=== PATIENT | male | born 1980 | race Hispanic/Latino ===

== ENCOUNTER 2018-10-21 19:17 | Emergency (ER) | payer OTHER ==
[~2018-10-21] VITALS: Ht 190.5 cm; Wt 158.8 kg
[2018-10-21] MEDS ORDERED: VANCOMYCIN 1GM/NS 250 ML 250 ML IV STA (20:50)
[2018-10-21] MEDS ORDERED: MORPHINE SULFATE INJ 4 MG/ML INJ 1ML IV PRN (21:00)
[2018-10-21 21:27] LABS: BASOPHILS # (AUTO) 0.1 (0.0-0.1); BASOPHILS % 0.5 % (0.0-1.0); EOSINOPHILS # (AUTO) 0.9 (0.0-0.4); EOSINOPHILS % 9.1 % (0.0-6.0); HEMATOCRIT 48.1 % (38.2-49.6); HEMOGLOBIN 16.7 g/dL (14.0-18.0); LYMPHOCYTES # (AUTO) 2.6 (1.0-3.2); LYMPHOCYTES % 26.5 % (18.0-39.1); MEAN CORPUSCULAR HEMOGLOBIN 31.6 pg (28-32); MEAN CORPUSCULAR HGB CONC 34.7 g/dL (31-35); MEAN CORPUSCULAR VOLUME 91.1 fL (81-99); MONOCYTES # (AUTO) 0.9 (0.2-0.8); NEUTROPHILS # (AUTO) 5.3 (2.1-6.9); NEUTROPHILS % 54.6 % (38.7-80.0); PLATELET COUNT 213 x10e3/uL (140-360); RED BLOOD COUNT 5.28 x10e6/uL (4.3-5.7)
[2018-10-21 21:45] LABS: ANION GAP 15.7 mmol/L (8-16); BLOOD UREA NITROGEN 10 mg/dL (7-26); BUN/CREATININE RATIO 10 (6-25); CARBON DIOXIDE 22 mmol/L (22-29); CHLORIDE 107 mmol/L (98-107); CREATININE, SERUM 0.99 mg/dL (0.72-1.25); EST GLOMERULAR FILTRATION RATE > 60 ML/MIN (60-); GLUCOSE 105 mg/dL (74-118); POTASSIUM 3.7 mmol/L (3.5-5.1); SODIUM 141 mmol/L (136-145)
[2018-10-21 23:16] VITALS: BP 157/96
== END 2018-10-21 23:29 | disposition home or self-care (01) ==
LOC: ER 19:17
DX: L03.116 Cellulitis of left lower limb (principal); L02.416 Cutaneous abscess of left lower limb; I10 Essential (primary) hypertension
CPT/HCPCS: 36415; 80048; 85025; 99284; J2270; J3370

== ENCOUNTER 2018-12-09 18:06 | Emergency (ER) | payer OTHER ==
[~2018-12-09] VITALS: Ht 190.5 cm; Wt 158.8 kg
--- NOTE | 2018-12-09 19:22 | NUR ---
HS NOTIFIED OF NEED FOR VENOUS DOPPLER
--- NOTE | 2018-12-09 19:30 | NUR ---
ER MD TO TRIAGE FOR INITIAL EVAL
[2018-12-09 19:31] LABS: BASOPHILS % 0.4 % (0.0-1.0); EOSINOPHILS # (AUTO) 0.9 (0.0-0.4); EOSINOPHILS % 11.9 % (0.0-6.0); HEMATOCRIT 45.6 % (38.2-49.6); HEMOGLOBIN 15.6 g/dL (14.0-18.0); LYMPHOCYTES # (AUTO) 1.9 (1.0-3.2); LYMPHOCYTES % 25.9 % (18.0-39.1); MEAN CORPUSCULAR HEMOGLOBIN 31.2 pg (28-32); MEAN CORPUSCULAR HGB CONC 34.2 g/dL (31-35); MEAN CORPUSCULAR VOLUME 91.2 fL (81-99); MONOCYTES # (AUTO) 0.5 (0.2-0.8); NEUTROPHILS % 54.4 % (38.7-80.0); PLATELET COUNT 188 x10e3/uL (140-360)
[2018-12-09 19:49] LABS: ALANINE AMINOTRANSFERASE 14 IU/L (0-55); ALBUMIN 3.7 g/dL (3.5-5.0); ALBUMIN/GLOBULIN RATIO 0.8 (0.8-2.0); ALKALINE PHOSPHATASE 80 IU/L (40-150); ANION GAP 14.1 mmol/L (8-16); BLOOD UREA NITROGEN 17 mg/dL (7-26); BUN/CREATININE RATIO 13 (6-25); CALCIUM 9.5 mg/dL (8.4-10.2); CARBON DIOXIDE 26 mmol/L (22-29); CHLORIDE 103 mmol/L (98-107); CREATINE KINASE 396 IU/L (30-200); CREATININE, SERUM 1.31 mg/dL (0.72-1.25); EST GLOMERULAR FILTRATION RATE > 60 ML/MIN (60-); GLUCOSE 118 mg/dL (74-118); POTASSIUM 4.1 mmol/L (3.5-5.1); SODIUM 139 mmol/L (136-145)
[2018-12-09] MEDS ORDERED: CLINDAMYCIN PHOS 900MG/ 50ML 50 ML IV ONE (20:08)
[2018-12-09] MEDS ORDERED: CLINDAMYCIN HC300 MG PO (21:15)
[2018-12-09] MEDS ORDERED: ACIDOPHILUS1 EAC4 PO (21:15)
== END 2018-12-09 22:00 | disposition home or self-care (01) ==
LOC: ER 18:06
DX: L03.116 Cellulitis of left lower limb (principal); I87.8 Other specified disorders of veins; I10 Essential (primary) hypertension; F17.210 Nicotine dependence, cigarettes, uncomplicated
CPT/HCPCS: 36415; 80053; 82550; 82553; 83605; 83880; 84484; 85025; 87040; 93970; 99283

== ENCOUNTER 2020-10-13 18:12 | Emergency (ER) | payer OTHER ==
[~2020-10-13] VITALS: Ht 190.5 cm; Wt 158.8 kg
[~2020-10-13 18:12] MED LIST: ACIDOPHILUS1 EAC4 PO; CLINDAMYCIN HC300 MG PO
[2020-10-13] MEDS ORDERED: ALBUTEROL/IPRATROPIUM 3 ML NEB NEB ONE (18:30)
[2020-10-13] MEDS ORDERED: METHYLPREDNISOLONE SOD SUCC 125 MG/2ML VIAL IV ONE (18:30)
[2020-10-13 18:55] LABS: BASOPHILS # (AUTO) 0.1 (0.0-0.1); BASOPHILS % 0.8 % (0.0-1.0); EOSINOPHILS # (AUTO) 0.3 (0.0-0.4); EOSINOPHILS % 2.7 % (0.0-6.0); HEMATOCRIT 41.4 % (38.2-49.6); HEMOGLOBIN 13.9 g/dL (14.0-18.0); LYMPHOCYTES # (AUTO) 2.3 (1.0-3.2); LYMPHOCYTES % 21.9 % (18.0-39.1); MEAN CORPUSCULAR HEMOGLOBIN 30.5 pg (28-32); MEAN CORPUSCULAR HGB CONC 33.6 g/dL (31-35); MEAN CORPUSCULAR VOLUME 90.8 fL (81-99); MONOCYTES # (AUTO) 0.9 (0.2-0.8); MONOCYTES % 8.9 % (4.4-11.3); NEUTROPHILS # (AUTO) 6.9 (2.1-6.9); NEUTROPHILS % 65.5 % (38.7-80.0); PLATELET COUNT 269 x10e3/uL (140-360); RED BLOOD COUNT 4.56 x10e6/uL (4.3-5.7); RED CELL DISTRIBUTION WIDTH 13.7 % (11.7-14.4)
[2020-10-13 19:12] LABS: ALBUMIN 3.5 g/dL (3.5-5.0); ALBUMIN/GLOBULIN RATIO 0.9 (0.8-2.0); CALCIUM 8.6 mg/dL (8.4-10.2); CREATININE, SERUM 1.3 mg/dL (0.72-1.25)
[2020-10-13 19:18] LABS: CREATINE KINASE MB 14.2 ng/mL (0-5.0)
[2020-10-13] MEDS ORDERED: FUROSEMIDE INJ 10 MG/ML 4 ML VIAL IV ONE (20:15)
[2020-10-13] MEDS ORDERED: ASPIRIN 81 MG CHEW TAB PO ONE (21:15)
[2020-10-13] MEDS ORDERED: IOPAMIDOL 370 MG/ML 200 ML INFUS..BTL INJ ONE (21:28)
[2020-10-13] MEDS ORDERED: SODIUM CHLORIDE 0.9% 50ML 50 ML ONE (21:28)
[2020-10-13 21:47] LABS: CREATINE KINASE MB 15.5 ng/mL (0-5.0)
[2020-10-13 22:42] VITALS: BP 144/117
== END 2020-10-13 22:45 | disposition home or self-care (01) ==
LOC: ER 18:40
DX: R06.02 Shortness of breath (principal); R05 Cough; J18.9 Pneumonia, unspecified organism; R94.31 Abnormal electrocardiogram [ECG] [EKG]; Z20.822 Contact with and (suspected) exposure to COVID-19
CPT/HCPCS: 36415; 71045; 71260; 80053; 82550; 82553; 83880; 84484; 85025; 93005; 94640; 99284; J1940; J2930; Q9967; U0002

== ENCOUNTER 2020-10-15 04:34 | Inpatient (IN) | payer OTHER ==
[~2020-10-15] VITALS: Ht 167.6 cm; Wt 158.8 kg
[2020-10-15 04:58] LABS: BASOPHILS # (AUTO) 0.1 (0.0-0.1); BASOPHILS % 0.4 % (0.0-1.0); EOSINOPHILS % 0.2 % (0.0-6.0); HEMATOCRIT 41.9 % (38.2-49.6); HEMOGLOBIN 13.6 g/dL (14.0-18.0); LYMPHOCYTES % 14.5 % (18.0-39.1); MEAN CORPUSCULAR HGB CONC 32.5 g/dL (31-35); MEAN CORPUSCULAR VOLUME 92.5 fL (81-99); MONOCYTES # (AUTO) 1.2 (0.2-0.8); NEUTROPHILS # (AUTO) 10.4 (2.1-6.9); NEUTROPHILS % 75.5 % (38.7-80.0); PLATELET COUNT 259 x10e3/uL (140-360); RED BLOOD COUNT 4.53 x10e6/uL (4.3-5.7)
[2020-10-15 05:25] LABS: ALBUMIN 3.6 g/dL (3.5-5.0); ALBUMIN/GLOBULIN RATIO 0.9 (0.8-2.0); ANION GAP 15.8 mmol/L (8-16); CALCIUM 8.5 mg/dL (8.4-10.2); CREATININE, SERUM 1.19 mg/dL (0.72-1.25); POTASSIUM 3.8 mmol/L (3.5-5.1)
[2020-10-15 05:31] LABS: B-TYPE NATRIURETIC PEPTIDE2 276.3 pg/mL (0-100)
[2020-10-15 05:32] LABS: CREATINE KINASE MB 6.2 ng/mL (0-5.0)
[2020-10-15] MEDS ORDERED: FUROSEMIDE INJ 10 MG/ML 4 ML VIAL IV ONE (05:45)
[2020-10-15 07:44] LABS: AMPHETAMINES SCREEN,URINE NEGATIVE (NEGATIVE); BENZODIAZEPINES SCREEN,URINE NEGATIVE (NEGATIVE); CLARITY,URINE CLEAR (CLEAR); COLOR,URINE YELLOW (YELLOW); KETONES,URINE TRACE (NEGATIVE); LEUKOCYTE ESTERASE ,URINE NEGATIVE (NEGATIVE); NITRITE,URINE NEGATIVE (NEGATIVE); PHENCYCLIDINE SCREEN,URINE NEGATIVE (NEGATIVE); PROTEIN,URINE DIPSTICK 2+ (NEGATIVE); URINE UROBILINOGEN 1 mg/dL (0.2 - 1)
[2020-10-15 08:11] LABS: BACTERIA,URINE MODERATE /HPF; RBC,URINE 0-5 /HPF (0-5); WBC,URINE (MAN) 0-5 /HPF (0-5)
[2020-10-15 08:12] LABS: EPITHELIAL CELLS,URINE RARE /LPF
[2020-10-15 09:36] VITALS: BP 147/101
[2020-10-15 10:44] VITALS: BP 147/98
[2020-10-15] MEDS ORDERED: LOSARTAN POTASSIUM 25 MG TAB PO SCH (11:30)
[2020-10-15] MEDS: CEFTRIAXONE 1 GM in SODIUM CHLORIDE 0.9% 50ML 50 ML IV SCH (11:45)
[2020-10-15] MEDS: LOSARTAN POTASSIUM 25 MG TAB PO SCH (12:00)
[2020-10-15 12:49] VITALS: BP 153/112
[2020-10-15] MEDS: ALBUTEROL/IPRATROPIUM 3 ML NEB NEB SCH ×2 (13:26→19:30)
[2020-10-15 14:01] VITALS: BP 148/101
[2020-10-15 16:04] VITALS: BP 141/75
[2020-10-15] MEDS: FUROSEMIDE INJ 10 MG/ML 2 ML VIAL IV SCH (16:32)
[2020-10-15] MEDS: CARVEDILOL 3.125 MG TAB PO SCH (16:32)
[2020-10-15] MEDS: FAMOTIDINE 20 MG TAB PO SCH (18:44)
[2020-10-15] MEDS ORDERED: MAGNESIUM/ALUMINUM/SIMETHICONE 30 ML UDC PO PRN (18:45)
[2020-10-15 20:49] VITALS: BP 137/100
[2020-10-15] MEDS ORDERED: DONNATAL/LIDOCAINE/MAALOX 30 ML SUSP PO ONE (21:00)
[2020-10-15] MEDS ORDERED: BELLADONNA ALK/PHENOBARBITAL 5 ML UDC PO SCH (21:00)
[2020-10-15] MEDS ORDERED: MAGNESIUM/ALUMINUM/SIMETHICONE 30 ML UDC PO ONE (21:15)
[2020-10-15] MEDS ORDERED: LIDOCAINE VISC 2% SOLN 15 ML UDC PO SCH (21:15)
[2020-10-16] VITALS (8 sets, daily range): BP systolic 142–155; BP diastolic 75–118
[2020-10-16] MEDS: ALBUTEROL/IPRATROPIUM 3 ML NEB NEB SCH ×4 (00:15→21:15)
[2020-10-16] MEDS ORDERED: HYDRALAZINE HCL 20 MG/ML VIAL IV PRN (02:00)
[2020-10-16] MEDS: FAMOTIDINE 20 MG TAB PO SCH ×2 (07:30→15:56)
[2020-10-16 07:46] LABS: BASOPHILS # (AUTO) 0.1 (0.0-0.1); BASOPHILS % 0.8 % (0.0-1.0); EOSINOPHILS # (AUTO) 0.1 (0.0-0.4); EOSINOPHILS % 0.4 % (0.0-6.0); HEMATOCRIT 43.1 % (38.2-49.6); HEMOGLOBIN 13.8 g/dL (14.0-18.0); LYMPHOCYTES # (AUTO) 2.3 (1.0-3.2); LYMPHOCYTES % 19.9 % (18.0-39.1); MEAN CORPUSCULAR HEMOGLOBIN 29.8 pg (28-32); MEAN CORPUSCULAR VOLUME 93.1 fL (81-99); MONOCYTES # (AUTO) 1.3 (0.2-0.8); MONOCYTES % 11.3 % (4.4-11.3); NEUTROPHILS # (AUTO) 7.7 (2.1-6.9); NEUTROPHILS % 66.8 % (38.7-80.0); PLATELET COUNT 268 x10e3/uL (140-360); RED BLOOD COUNT 4.63 x10e6/uL (4.3-5.7); RED CELL DISTRIBUTION WIDTH 14.1 % (11.7-14.4)
[2020-10-16 08:09] LABS: ALBUMIN 3.5 g/dL (3.5-5.0); ALBUMIN/GLOBULIN RATIO 0.9 (0.8-2.0); ANION GAP 15.1 mmol/L (8-16); CALCIUM 8.2 mg/dL (8.4-10.2); CREATININE, SERUM 1.32 mg/dL (0.72-1.25); POTASSIUM 4.1 mmol/L (3.5-5.1)
[2020-10-16] MEDS: LOSARTAN POTASSIUM 25 MG TAB PO SCH (09:00)
[2020-10-16] MEDS ORDERED: FUROSEMIDE 40 MG TAB PO SCH (09:00)
[2020-10-16] MEDS: FUROSEMIDE INJ 10 MG/ML 2 ML VIAL IV SCH ×2 (09:00→15:56)
[2020-10-16] MEDS: CARVEDILOL 3.125 MG TAB PO SCH ×2 (09:00→15:57)
[2020-10-16] MEDS: CEFTRIAXONE 1 GM in SODIUM CHLORIDE 0.9% 50ML 50 ML IV SCH (09:00)
[2020-10-16] MEDS: VALSARTAN/SACUBITRIL 24MG/26MG 1 EA TAB PO SCH (15:57)
[2020-10-16] MEDS ORDERED: LOSARTAN POTASSIUM 25 MG TAB PO SCH (17:00)
[2020-10-16] MEDS ORDERED: FAMOTIDINE 20 MG TAB PO SCH (18:35)
[2020-10-17] VITALS (8 sets, daily range): BP systolic 119–146; BP diastolic 49–104
[2020-10-17] MEDS: ALBUTEROL/IPRATROPIUM 3 ML NEB NEB SCH ×4 (00:58→18:50)
[2020-10-17 06:01] LABS: BASOPHILS # (AUTO) 0.1 (0.0-0.1); BASOPHILS % 0.7 % (0.0-1.0); EOSINOPHILS # (AUTO) 0.2 (0.0-0.4); EOSINOPHILS % 1.9 % (0.0-6.0); HEMATOCRIT 44.4 % (38.2-49.6); HEMOGLOBIN 14.3 g/dL (14.0-18.0); LYMPHOCYTES # (AUTO) 2.1 (1.0-3.2); LYMPHOCYTES % 20.5 % (18.0-39.1); MEAN CORPUSCULAR HEMOGLOBIN 30.2 pg (28-32); MEAN CORPUSCULAR HGB CONC 32.2 g/dL (31-35); MEAN CORPUSCULAR VOLUME 93.7 fL (81-99); MONOCYTES # (AUTO) 0.9 (0.2-0.8); NEUTROPHILS % 67.2 % (38.7-80.0); PLATELET COUNT 246 x10e3/uL (140-360); RED BLOOD COUNT 4.74 x10e6/uL (4.3-5.7); RED CELL DISTRIBUTION WIDTH 13.9 % (11.7-14.4)
[2020-10-17 06:28] LABS: CREATININE, SERUM 1.2 mg/dL (0.72-1.25)
[2020-10-17 07:09] LABS: THYROID STIMULATING HORMONE 4.108 uIU/mL (0.350-4.940)
[2020-10-17] MEDS: FAMOTIDINE 20 MG TAB PO SCH ×2 (07:30→16:30)
[2020-10-17] MEDS: CEFTRIAXONE 1 GM in SODIUM CHLORIDE 0.9% 50ML 50 ML IV SCH (08:30)
[2020-10-17] MEDS: FUROSEMIDE INJ 10 MG/ML 2 ML VIAL IV SCH ×2 (08:30→17:00)
[2020-10-17] MEDS: CARVEDILOL 3.125 MG TAB PO SCH ×2 (08:31→17:00)
[2020-10-17] MEDS: VALSARTAN/SACUBITRIL 24MG/26MG 1 EA TAB PO SCH ×2 (08:31→17:00)
[2020-10-18] VITALS (13 sets, daily range): BP systolic 130–153; BP diastolic 92–110
[2020-10-18] MEDS: ALBUTEROL/IPRATROPIUM 3 ML NEB NEB SCH ×4 (00:15→19:40)
[2020-10-18 05:17] LABS: BASOPHILS # (AUTO) 0.1 (0.0-0.1); BASOPHILS % 0.7 % (0.0-1.0); EOSINOPHILS # (AUTO) 0.5 (0.0-0.4); EOSINOPHILS % 4.3 % (0.0-6.0); HEMATOCRIT 46.4 % (38.2-49.6); LYMPHOCYTES # (AUTO) 2.2 (1.0-3.2); LYMPHOCYTES % 21.2 % (18.0-39.1); MEAN CORPUSCULAR HEMOGLOBIN 30.1 pg (28-32); MEAN CORPUSCULAR HGB CONC 32.3 g/dL (31-35); MONOCYTES # (AUTO) 0.9 (0.2-0.8); MONOCYTES % 8.7 % (4.4-11.3); NEUTROPHILS # (AUTO) 6.8 (2.1-6.9); NEUTROPHILS % 64.5 % (38.7-80.0); PLATELET COUNT 239 x10e3/uL (140-360); RED BLOOD COUNT 4.99 x10e6/uL (4.3-5.7)
[2020-10-18 05:40] LABS: INR 1.31
[2020-10-18 05:41] LABS: PARTIAL THROMBOPLASTIN TIME 33.6 seconds (23.8-35.5)
[2020-10-18 05:52] LABS: ANION GAP 11.3 mmol/L (8-16); CALCIUM 8.5 mg/dL (8.4-10.2); CREATININE, SERUM 1.15 mg/dL (0.72-1.25); POTASSIUM 4.3 mmol/L (3.5-5.1)
[2020-10-18] MEDS: FAMOTIDINE 20 MG TAB PO SCH ×2 (07:30→16:20)
[2020-10-18] MEDS ORDERED: MIDAZOLAM HCL 2 MG/2 ML VIAL ONE (08:12)
[2020-10-18] MEDS ORDERED: LIDOCAINE HCL 2% LOCAL 20 ML VIAL ONE (08:12)
[2020-10-18] MEDS ORDERED: SODIUM CHLORIDE 0.9% 1000ML 1,000 ML ONE (08:12)
[2020-10-18] MEDS ORDERED: IOPAMIDOL 370 MG/ML 200 ML INFUS..BTL INJ ONE (08:12)
[2020-10-18] MEDS ORDERED: HEPARIN SOD/SOD CHLORIDE 2,000 ML ONE (08:12)
[2020-10-18] MEDS ORDERED: FENTANYL CITRATE/PF 100MCG/2 ML INJ ONE (08:12)
[2020-10-18] MEDS: VALSARTAN/SACUBITRIL 24MG/26MG 1 EA TAB PO SCH ×2 (09:00→16:40)
[2020-10-18] MEDS: CEFTRIAXONE 1 GM in SODIUM CHLORIDE 0.9% 50ML 50 ML IV SCH (16:20)
[2020-10-18] MEDS: FUROSEMIDE INJ 10 MG/ML 4 ML VIAL IV SCH (16:20)
[2020-10-18] MEDS: CARVEDILOL 12.5 MG TAB PO SCH (16:40)
[2020-10-19] VITALS: BP 115/85
[2020-10-19] MEDS: ALBUTEROL/IPRATROPIUM 3 ML NEB NEB SCH ×3 (01:30→13:10)
[2020-10-19 04:00] VITALS: BP 124/100
[2020-10-19 06:25] LABS: BASOPHILS # (AUTO) 0.1 (0.0-0.1); BASOPHILS % 0.8 % (0.0-1.0); EOSINOPHILS # (AUTO) 0.5 (0.0-0.4); EOSINOPHILS % 5.5 % (0.0-6.0); HEMATOCRIT 44.3 % (38.2-49.6); HEMOGLOBIN 14.3 g/dL (14.0-18.0); LYMPHOCYTES # (AUTO) 1.8 (1.0-3.2); LYMPHOCYTES % 18.8 % (18.0-39.1); MEAN CORPUSCULAR HEMOGLOBIN 30.2 pg (28-32); MEAN CORPUSCULAR HGB CONC 32.3 g/dL (31-35); MEAN CORPUSCULAR VOLUME 93.7 fL (81-99); MONOCYTES % 10.4 % (4.4-11.3); NEUTROPHILS # (AUTO) 6.1 (2.1-6.9); NEUTROPHILS % 64.1 % (38.7-80.0); PLATELET COUNT 247 x10e3/uL (140-360); RED BLOOD COUNT 4.73 x10e6/uL (4.3-5.7); RED CELL DISTRIBUTION WIDTH 13.8 % (11.7-14.4)
[2020-10-19 06:51] LABS: ANION GAP 11.4 mmol/L (8-16); CALCIUM 8.8 mg/dL (8.4-10.2); CREATININE, SERUM 1.1 mg/dL (0.72-1.25); POTASSIUM 4.4 mmol/L (3.5-5.1)
[2020-10-19 08:50] VITALS: BP 117/56
[2020-10-19] MEDS: CEFTRIAXONE 1 GM in SODIUM CHLORIDE 0.9% 50ML 50 ML IV SCH (10:00)
[2020-10-19] MEDS: FUROSEMIDE INJ 10 MG/ML 4 ML VIAL IV SCH (10:00)
[2020-10-19] MEDS: FAMOTIDINE 20 MG TAB PO SCH (10:00)
[2020-10-19] MEDS: CARVEDILOL 12.5 MG TAB PO SCH (10:00)
[2020-10-19] MEDS: VALSARTAN/SACUBITRIL 24MG/26MG 1 EA TAB PO SCH (10:00)
[2020-10-19 11:35] VITALS: BP 141/90
[2020-10-19] MEDS ORDERED: Valsartan/Sacubitril 24MG/26MG PO (12:08)
[2020-10-19] MEDS ORDERED: COREG12.5 MG PO (12:08)
[2020-10-19 13:19] LABS: CHOL/HDL RATIO 5.4 (3.9-4.7)
== END 2020-10-19 14:21 | disposition home or self-care (01) | DRG 286 ==
LOC: ER 05:14 → ERHOLD 06:42 → MED/SURG2 08:30 → OBSVTOIN 10-16 15:04
PROVIDERS: ADMIT Internal Medicine; ATTEND Internal Medicine
PROC: 4A023N7 Measurement of Cardiac Sampling and Pressure, Left Heart, Percutaneous Approach (ICD-10-PCS; principal; 2020-10-18)
PROC: B2111ZZ Fluoroscopy of Multiple Coronary Arteries using Low Osmolar Contrast (ICD-10-PCS; 2020-10-18)
PROC: B2151ZZ Fluoroscopy of Left Heart using Low Osmolar Contrast (ICD-10-PCS; 2020-10-18)
DX: I11.0 Hypertensive heart disease with heart failure (principal); J18.9 Pneumonia, unspecified organism; J96.01 Acute respiratory failure with hypoxia; Z68.43 Body mass index [BMI] 50.0-59.9, adult; I42.8 Other cardiomyopathies; F17.200 Nicotine dependence, unspecified, uncomplicated; G47.33 Obstructive sleep apnea (adult) (pediatric); E66.01 Morbid (severe) obesity due to excess calories; F10.10 Alcohol abuse, uncomplicated; I50.23 Acute on chronic systolic (congestive) heart failure
CPT/HCPCS: 36415; 71045; 71046; 80048; 80053; 80061; 80307; 81001; 82550; 82553; 82948; 83605; 83880; 84436; 84443; 84479; 84484; 85025; 85610; 85730; 87040; 93005; 93306; 93458; 94640; 94660; 99152; 99153; 99284; C1769; C1887; G0378; J0360; J0456; J0696; J1940; J2001; J2250; J3010; J7030; J7050; Q9967

== ENCOUNTER 2024-11-04 08:21 | Inpatient (IN) | payer SELFPAY ==
[~2024-11-04] VITALS: Ht 190.5 cm; Wt 183.7 kg
[~2024-11-04 08:21] MED LIST changes: +COREG12.5 MG PO; +Valsartan/Sacubitril 24MG/26MG PO
[2024-11-04 08:57] LABS: BASOPHILS % 0.2 % (0.0-1.0); EOSINOPHILS % 1.7 % (0.0-6.0); LYMPHOCYTES % 19.3 % (18.0-39.1); MONOCYTES % 8.5 % (4.4-11.3); NEUTROPHILS % 67.4 % (38.7-80.0); RED CELL DISTRIBUTION WIDTH 15.9 % (11.7-14.4)
[2024-11-04] MEDS ORDERED: SODIUM CHLORIDE FLUSH 10 ML SYR IV PRN (09:00)
[2024-11-04 09:23] LABS: EST GLOMERULAR FILTRATION RATE 112 ML/MIN (>=60)
[2024-11-04] MEDS ORDERED: ONDANSETRON HCL INJ 2MG/ML 2ML 2 MG/ML VIAL IV PRN ×2 (10:00→15:15)
[2024-11-04] MEDS ORDERED: SODIUM CHLORIDE FLUSH 10 ML SYR INJ PRN (10:00)
[2024-11-04 10:18] LABS: PLATELET ESTIMATE SLIGHTLY DECREASED; PLATELET MORPHOLOGY COMMENT NORMAL
[2024-11-04 13:14] VITALS: PULSE 84; RESP 18; O2SAT 98
[2024-11-04] MEDS: ALBUTEROL/IPRATROPIUM 3 ML NEB NEB SCH (13:15)
[2024-11-04] MEDS ORDERED: HYDROCODONE/APAP 5MG-325MG TAB PO PRN (15:15)
[2024-11-04] MEDS ORDERED: DIPHENHYDRAMINE HCL 25 MG CAP PO PRN (15:15)
[2024-11-04] MEDS ORDERED: BENZONATATE 100 MG CAP PO PRN (15:15)
[2024-11-04] MEDS ORDERED: HYDRALAZINE HCL 20 MG/ML VIAL IV PRN (15:15)
[2024-11-04] MEDS ORDERED: DOCUSATE SODIUM 100 MG CAP PO PRN (15:15)
[2024-11-04] MEDS ORDERED: POTASSIUM CHLORIDE 20 MEQ TAB CR PO PRN (15:15)
[2024-11-04] MEDS ORDERED: DEXTROSE 50% SYRINGE 50 ML IV PRN (15:15)
[2024-11-04] MEDS ORDERED: ACETAMINOPHEN 325 MG TAB PO PRN (15:15)
[2024-11-04] MEDS ORDERED: SIMETHICONE 80 MG CHEW PO PRN (15:15)
[2024-11-04 16:05] VITALS: PULSE 69; RESP 16; TEMP 98.6
[2024-11-04 16:49] VITALS: BP 135/70; PULSE 72; RESP 17; TEMP 97.9; O2SAT 99
[2024-11-04 17:00] VITALS: BP 135/70; PULSE 72; RESP 17; TEMP 97.9; O2SAT 99
[2024-11-04] MEDS: FUROSEMIDE INJ 10 MG/ML 4 ML VIAL IV SCH (17:15)
[2024-11-04] MEDS: ENOXAPARIN SOD INJ 40 MG/0.4 ML SYR SC SCH (17:15)
[2024-11-04] MEDS ORDERED: ALDACTONE25 MG PO (17:29)
[2024-11-04] MEDS ORDERED: COREG12.5 MG PO (17:29)
[2024-11-04] MEDS ORDERED: LOSARTAN POTASS25 MG PO (17:29)
[2024-11-04] MEDS ORDERED: FUROSEMIDE40 MG PO (17:29)
[2024-11-04] MEDS: POTASSIUM CHLORIDE 20 MEQ TAB CR PO STA (18:16)
[2024-11-04] MEDS: METOLAZONE 5 MG TAB PO ONE (18:16)
[2024-11-04] MEDS: FUROSEMIDE INJ 100 MG in SODIUM CHLORIDE 0.9% 90 ML IV SCH (18:58)
[2024-11-04 20:00] VITALS: BP 142/80; PULSE 72; RESP 17; TEMP 98.4; O2SAT 100
[2024-11-04 20:55] VITALS: PULSE 79; RESP 18; O2SAT 98
[2024-11-04] MEDS: ALBUTEROL/IPRATROPIUM 3 ML NEB NEB PRN (20:59)
[2024-11-04] MEDS ORDERED: MELATONIN 5 MG TABLET PO PRN (21:00)
[2024-11-05] VITALS (11 sets, daily range): BP systolic 123–141; BP diastolic 65–83; PULSE 69–82; RESP 16–20; TEMP 97.7–99.1; O2SAT 94–99
[2024-11-05 05:57] LABS: BASOPHILS % 0.2 % (0.0-1.0); EOSINOPHILS % 1.2 % (0.0-6.0); LYMPHOCYTES % 21.2 % (18.0-39.1); MONOCYTES % 8.9 % (4.4-11.3); NEUTROPHILS % 66.0 % (38.7-80.0); RED CELL DISTRIBUTION WIDTH 16.3 % (11.7-14.4)
[2024-11-05 06:21] LABS: % IRON SATURATION 54 % (15-50); EST GLOMERULAR FILTRATION RATE 110 ML/MIN (>=60)
[2024-11-05 06:29] LABS: CHOL/HDL RATIO 11.2 (3.9-4.7); LDL CHOLESTEROL 93.0 MG/DL (60-130)
[2024-11-05] MEDS: PANTOPRAZOLE SOD 40 MG TABEC PO SCH (08:29)
[2024-11-05] MEDS: SPIRONOLACTONE 25 MG TAB PO SCH (08:30)
[2024-11-05 10:14] LABS: EOSINOPHILS % (MANUAL) 3 % (0-7); LYMPHOCYTES % (MANUAL) 20 % (19-48); MONOCYTES % (MANUAL) 4 % (3.4-9.0); NEUTROPHILS % (MANUAL) 71 % (40-74); PLATELET ESTIMATE SLIGHTLY DECREASED; PLATELET MORPHOLOGY COMMENT NORMAL; RBC MORPHOLOGY COMMENT NORMAL; REACTIVE LYMPHOCYTES 2
[2024-11-05] MEDS: FUROSEMIDE INJ 100 MG in SODIUM CHLORIDE 0.9% 90 ML IV SCH (15:00)
[2024-11-05] MEDS: METOLAZONE 5 MG TAB PO ONE (15:11)
[2024-11-06] VITALS (11 sets, daily range): BP systolic 126–157; BP diastolic 85–96; PULSE 78–103; RESP 16–22; TEMP 97.6–99.3; O2SAT 94–98
[2024-11-06 05:29] LABS: BASOPHILS % 0.2 % (0.0-1.0); EOSINOPHILS % 1.8 % (0.0-6.0); LYMPHOCYTES % 22.9 % (18.0-39.1); MONOCYTES % 5.7 % (4.4-11.3); NEUTROPHILS % 68.0 % (38.7-80.0); RED CELL DISTRIBUTION WIDTH 15.5 % (11.7-14.4)
[2024-11-06 06:01] LABS: EST GLOMERULAR FILTRATION RATE 89.0 ML/MIN (>=60)
[2024-11-06 06:06] LABS: HIV 1&2 AB SCREEN NON-REACTIVE (NONREACTIVE); HIV- 1 P24 AG SCREEN NON-REACTIVE (NONREACTIVE)
[2024-11-06] MEDS: LIDOCAINE 4% PATCH TP PRN (08:48)
[2024-11-06] MEDS: FUROSEMIDE INJ 10 MG/ML 4 ML VIAL IV SCH (21:40)
[2024-11-07 03:03] VITALS: BP 154/94; PULSE 97; RESP 19; TEMP 97.6; O2SAT 95
[2024-11-07 07:42] VITALS: BP 142/86; PULSE 85; RESP 18; TEMP 98.3; O2SAT 97
[2024-11-07 07:57] VITALS: BP 142/86; PULSE 85; RESP 18; TEMP 98.3; O2SAT 97
[2024-11-07 07:58] VITALS: PULSE 86; RESP 18; O2SAT 96
[2024-11-07] MEDS: CYANOCOBALAMIN 1,000 MCG TAB PO SCH (09:38)
[2024-11-07 10:58] LABS: FOLATE (REF LAB) 2.0 ng/mL (>3.0)
[2024-11-07 14:50] VITALS: PULSE 83; RESP 18; O2SAT 97
[2024-11-07 14:51] VITALS: PULSE 83; RESP 18; O2SAT 97
[2024-11-13 12:08] LABS: HEPATITIS A ANTIBODY IGM (P) Negative; HEPATITIS B CORE IGM (P) Negative; HEPATITIS B SURFACE AG (P) Negative
[2024-11-13 18:59] LABS: HAPTOGLOBIN 88 mg/dL (23-355)
== END 2024-11-07 15:40 | disposition home or self-care (01) | DRG 291 ==
LOC: ER 08:26 → ERHOLD 09:59 → MED/SURG3 16:34 → OBSVTOIN 11-05 14:15
PROVIDERS: ADMIT Internal Medicine; ATTEND Internal Medicine
DX: I11.0 Hypertensive heart disease with heart failure (principal); I50.33 Acute on chronic diastolic (congestive) heart failure; D61.818 Other pancytopenia; Z68.43 Body mass index [BMI] 50.0-59.9, adult; E66.01 Morbid (severe) obesity due to excess calories; Z71.3 Dietary counseling and surveillance; E78.5 Hyperlipidemia, unspecified; F17.200 Nicotine dependence, unspecified, uncomplicated; R74.02 Elevation of levels of lactic acid dehydrogenase [LDH]; Z59.72 Insufficient welfare support; Z79.899 Other long term (current) drug therapy
CPT/HCPCS: 36415; 71045; 80048; 80053; 80061; 82550; 82607; 82746; 83010; 83036; 83540; 83615; 83735; 83880; 84443; 84466; 84484; 85025; 85045; 87390; 93005; 93306; 93970; 94640; 94760; 94799; 99284; G0378; G0433; G0435; J1650; J1938; J1940; J2470; J7050